=== PATIENT | female | born 1995 | race Caucasian/White ===

== ENCOUNTER 2021-12-18 17:23 | Emergency (ER) | payer SELFPAY | END 2021-12-18 19:07 | disposition home or self-care (01) | LOC: JD.ED 17:23 | DX: T16.1XXA Foreign body in right ear, initial encounter (principal); H65.01 Acute serous otitis media, right ear; Z79.899 Other long term (current) drug therapy; Z90.49 Acquired absence of other specified parts of digestive tract | CPT/HCPCS: 99282; 99283 ==

== ENCOUNTER 2022-10-12 00:30 | Emergency (ER) | payer MEDICAID ==
[2022-10-12] MEDS ORDERED: Sodium Chloride 0.9% 10 ML Syringe FLUSH PRN (00:43)
[2022-10-12 01:04] LABS: BASOPHILS ABSOLUTE AUTO 0.01 K/mm3 (0.01-0.08); BASOPHILS PERCENT AUTO 0.1 % (0.1-1.2); EOSINOPHILS ABSOLUTE AUTO 0.22 K/mm3 (0.04-0.36); HEMATOCRIT 33.5 % (34.1-44.9); HEMOGLOBIN 11.5 gm/dl (11.2-15.7); IMMATURE GRAN ABSOLUTE AUTO 0.01 K/mm3 (0.00-0.10); IMMATURE GRAN PERCENT AUTO 0.1 % (<=1.0); LYMPHOCYTES ABSOLUTE AUTO 2.42 K/mm3 (1.18-3.74); LYMPHOCYTES PERCENT AUTO 32.6 % (19.3-51.7); MEAN CORPUSCULAR HEMOGLOBIN 29.7 pg (25.6-32.2); MEAN CORPUSCULAR HGB CONC 34.3 g/dl (32.2-35.5); MEAN CORPUSCULAR VOLUME 86.6 fl (79.4-94.8); MEAN PLATELET VOLUME 10.6 fl (9.4-12.3); MONOCYTES ABSOLUTE AUTO 0.44 K/mm3 (0.24-0.36); MONOCYTES PERCENT AUTO 5.9 % (4.7-12.5); NEUTROPHILS ABSOLUTE AUTO 4.32 K/mm3 (1.56-6.13); NEUTROPHILS PERCENT AUTO 58.3 % (34.0-71.1); PLATELET COUNT,PLT 199 K/mm3 (182-369); RED BLOOD CELL COUNT 3.87 M/mm3 (3.98-5.22); WHITE BLOOD CELL COUNT,WBC 7.42 K/mm3 (3.98-10.04)
[2022-10-12 01:41] LABS: A/G RATIO 1.2 (1-2); ALANINE AMINOTRANSFERASE,ALT 23 U/L (14-59); ALBUMIN 3.9 g/dl (3.4-5.0); ALKALINE PHOSPHATASE 62 U/L (46-116); ANION GAP 11.5 (5-15); ASPARTATE AMNIOTRANSFERASE,AST 20 U/L (15-37); BILIRUBIN TOTAL 0.4 mg/dL (0.2-1.0); BLOOD UREA NITROGEN,BUN 7 mg/dL (7-18); CALCIUM 8.8 mg/dL (8.5-10.1); CARBON DIOXIDE,CO2 27 mEq/L (21-32); CHLORIDE,CL 103 mEq/L (98-107); CREATININE 0.7 mg/dL (0.55-1.02); EST CRCL DRUG DOSING (CG) 98.98 mL/min; ESTIMATED GFR 121 mL/min (>60); GLUCOSE RANDOM 90 mg/dL (70-99); MAGNESIUM 1.8 mg/dL (1.8-2.4); POTASSIUM,K 3.5 mEq/L (3.5-5.1); PROTEIN TOTAL,TP 7.3 g/dl (6.4-8.2); SODIUM,NA 138 mEq/L (136-145); TSH 3.774 uIU/mL (0.358-3.74)
[2022-10-12 01:44] LABS: TROPONIN I HIGH SENSITIVITY < 4 pg/mL (<=51)
== END 2022-10-12 02:30 | disposition home or self-care (01) ==
LOC: JD.ED 00:30
DX: R00.2 Palpitations (principal); Z88.1 Allergy status to other antibiotic agents
CPT/HCPCS: 36415; 71045; 71045-26; 80053; 83735; 84443; 84484; 85025; 85379; 93225; 93226; 99285

== ENCOUNTER 2023-07-08 17:49 | Emergency (ER) | payer MEDICAID ==
[2023-07-08 18:27] LABS: BASOPHILS PERCENT AUTO 0.3 % (0.0-1.0); EOSINOPHILS ABSOLUTE AUTO 0.3 K/mm3 (0.0-0.4); EOSINOPHILS PERCENT AUTO 2.6 % (0.0-6.0); HEMATOCRIT 33.4 % (37.0-47.0); HEMOGLOBIN 11.6 gm/dl (12.0-16.0); IMMATURE GRAN ABSOLUTE AUTO 0.04 K/mm3 (0.00-0.05); IMMATURE GRAN PERCENT AUTO 0.4 % (0.0-0.4); LYMPHOCYTES ABSOLUTE AUTO 2.2 K/mm3 (1.0-4.8); LYMPHOCYTES PERCENT AUTO 21.6 % (24.0-44.0); MEAN CORPUSCULAR HEMOGLOBIN 29.7 pg (28.0-32.0); MEAN CORPUSCULAR HGB CONC 34.7 g/dl (32.0-36.0); MEAN CORPUSCULAR VOLUME 85.6 fl (83.0-99.0); MEAN PLATELET VOLUME 9.9 fl (9.4-12.3); MONOCYTES ABSOLUTE AUTO 0.6 K/mm3 (0.0-0.8); MONOCYTES PERCENT AUTO 5.6 % (0.0-8.0); NEUTROPHILS ABSOLUTE AUTO 7.1 K/mm3 (1.8-7.7); NEUTROPHILS PERCENT AUTO 69.5 % (41.0-71.0); PLATELET COUNT,PLT 200 K/mm3 (150-400)
[2023-07-08 19:25] LABS: A/G RATIO 1.2 (1-2); ALBUMIN 3.9 g/dl (3.4-5.0); ANION GAP 13.4 (5-15); BILIRUBIN TOTAL 0.3 mg/dL (0.2-1.0); BUN/CREATININE RATIO 13.3 (14-18); CALCIUM 8.7 mg/dL (8.5-10.1); CREATININE 0.6 mg/dL (0.55-1.02); EST CRCL DRUG DOSING (CG) 114.44 mL/min; POTASSIUM,K 3.4 mEq/L (3.5-5.1); PROTEIN TOTAL,TP 7.3 g/dl (6.4-8.2)
== END 2023-07-08 20:52 | disposition home or self-care (01) ==
LOC: JD.ED 17:49
DX: O41.8X10 Other specified disorders of amniotic fluid and membranes, first trimester, not applicable or unspecified (principal); O26.851 Spotting complicating pregnancy, first trimester; Z90.49 Acquired absence of other specified parts of digestive tract; Z88.1 Allergy status to other antibiotic agents; Z3A.01 Less than 8 weeks gestation of pregnancy
CPT/HCPCS: 36415; 76817; 76817-26; 80053; 84702; 85025; 86900; 86901; 99283; 99284

== ENCOUNTER 2023-09-15 20:27 | Emergency (ER) | payer SELFPAY ==
[2023-09-15 21:13] LABS: APPEARANCE,URINE SLT CLOUDY (Clear); BILIRUBIN,URINE NEGATIVE (Negative); COLOR,URINE YELLOW (Yellow); GLUCOSE,URINE NEGATIVE (Negative); KETONES,URINE NEGATIVE (Negative); LEUKOCYTE ESTERASE,URINE TRACE (Negative); NITRITE,URINE NEGATIVE (Negative); OCCULT BLOOD,URINE NEGATIVE (Negative); PROTEIN,URINE NEGATIVE (Negative); UROBILINOGEN,URINE 0.2 (0.2-1.0)
[2023-09-15 21:29] LABS: BACTERIA,URINE MODERATE /hpf (FEW); MUCUS,URINE FEW /hpf (FEW); RBC,URINE 0-5 /hpf (0-5)
== END 2023-09-15 22:00 | disposition home or self-care (01) ==
LOC: JD.ED 20:27
DX: O26.892 Other specified pregnancy related conditions, second trimester (principal); R10.9 Unspecified abdominal pain; Z3A.16 16 weeks gestation of pregnancy; Z79.899 Other long term (current) drug therapy; Z88.1 Allergy status to other antibiotic agents
CPT/HCPCS: 81001; 81003; 87086; 99283; 99284

== ENCOUNTER 2024-02-19 17:01 | Inpatient (IN) | payer MEDICAID ==
[2024-02-19] MEDS ORDERED: Lidocaine 1% 50 ML MDV INJECT PRN (17:25)
[2024-02-19] MEDS ORDERED: Acetaminophen 325 MG Tab PO PRN ×2 (17:25→22:40)
[2024-02-19] MEDS ORDERED: Calcium Carbonate 500 MG Tab.Chew PO PRN (17:25)
[2024-02-19] MEDS ORDERED: Ondansetron 4 MG/2 ML SDV IVPUSH PRN (17:25)
[2024-02-19] MEDS ORDERED: Oxytocin/0.9 % Sodium Chloride 30 UNIT/500 ML BAG IV SCH (17:30)
[2024-02-19] MEDS: Lactated Ringers 1,000 ML IV SCH (17:49)
[2024-02-19 17:59] LABS: BASOPHILS PERCENT AUTO 0.2 % (0.0-1.0); EOSINOPHILS ABSOLUTE AUTO 0.4 K/mm3 (0.0-0.4); EOSINOPHILS PERCENT AUTO 2.1 % (0.0-6.0); HEMATOCRIT 31.1 % (37.0-47.0); HEMOGLOBIN 9.9 gm/dl (12.0-16.0); IMMATURE GRAN ABSOLUTE AUTO 0.09 K/mm3 (0.00-0.05); IMMATURE GRAN PERCENT AUTO 0.5 % (0.0-0.4); LYMPHOCYTES ABSOLUTE AUTO 1.7 K/mm3 (1.0-4.8); LYMPHOCYTES PERCENT AUTO 9.9 % (24.0-44.0); MEAN CORPUSCULAR HEMOGLOBIN 26.4 pg (28.0-32.0); MEAN CORPUSCULAR HGB CONC 31.8 g/dl (32.0-36.0); MEAN CORPUSCULAR VOLUME 82.9 fl (83.0-99.0); MEAN PLATELET VOLUME 9.7 fl (9.4-12.3); MONOCYTES ABSOLUTE AUTO 0.9 K/mm3 (0.0-0.8); MONOCYTES PERCENT AUTO 5.2 % (0.0-8.0); NEUTROPHILS ABSOLUTE AUTO 14.4 K/mm3 (1.8-7.7); NEUTROPHILS PERCENT AUTO 82.1 % (41.0-71.0); PLATELET COUNT,PLT 192 K/mm3 (150-400); RED BLOOD CELL COUNT 3.75 M/mm3 (4.10-5.30); WHITE BLOOD CELL COUNT,WBC 17.53 K/mm3 (3.9-11.3)
[2024-02-19] MEDS ORDERED: ePHEDrine 50 MG/ML SDV IVPUSH PRN (18:02)
[2024-02-19] MEDS ORDERED: diphenhydrAMINE 50 MG/ML SDV IVPUSH PRN (18:02)
[2024-02-19] MEDS: Bupivacaine/fentaNYL/NS 100 ML Bag EPIDUR PRN (18:26)
[2024-02-19] MEDS: Oxytocin/0.9 % Sodium Chloride 30 UNIT/500 ML BAG IV SCH (20:51)
[2024-02-19] MEDS: Witch Hazel Medicated Pads 40/Jar TOP PRN (23:26)
[2024-02-19] MEDS: Benzocaine/Menthol 20%-0.5% Spray 78 GM Cannister TOP PRN (23:26)
[2024-02-19] MEDS: Ibuprofen 600 MG Tab PO SCH (23:30)
[2024-02-20] MEDS: Sertraline 50 MG Tab PO SCH (08:55)
[2024-02-21] MEDS: Docusate Sodium 100 MG Cap PO PRN (08:59)
== END 2024-02-21 12:15 | disposition home or self-care (01) | DRG 807 ==
LOC: JD.OBCHECK 17:01 → JD.OB 17:04 → JD.OBCHECK 17:24 → JD.OB 17:25 → OBSVTOIN 20:51 → JD.OB 20:52
PROVIDERS: ADMIT Obstetrics & Gynecology; ATTEND Obstetrics & Gynecology
PROC: 10E0XZZ Delivery of Products of Conception, External Approach (ICD-10-PCS; principal; 2024-02-19)
PROC: 3E0R3BZ Introduction of Anesthetic Agent into Spinal Canal, Percutaneous Approach (ICD-10-PCS; 2024-02-19)
PROC: 00HU33Z Insertion of Infusion Device into Spinal Canal, Percutaneous Approach (ICD-10-PCS; 2024-02-19)
DX: O80 Encounter for full-term uncomplicated delivery (principal); Z37.0 Single live birth; Z3A.38 38 weeks gestation of pregnancy
CPT/HCPCS: 36415; 51702; 59025; 59409; 85025; 86592; 86850; 86900; 86901; A9270-GY; J3490; J7120; J7999

== ENCOUNTER 2024-03-13 18:24 | Emergency (ER) | payer MEDICAID ==
[2024-03-13] MEDS: Famotidine 20 MG/2 ML SDV IVPUSH ONE (19:55)
[2024-03-13] MEDS: Sodium Chloride 0.9% 1,000 ML IV SCH (19:55)
[2024-03-13] MEDS: Sodium Chloride 0.9% 10 ML Syringe FLUSH PRN (19:56)
[2024-03-13] MEDS: Ondansetron 4 MG/2 ML SDV IVPUSH ONE (19:56)
[2024-03-13 20:06] LABS: BASOPHILS PERCENT AUTO 0.6 % (0.0-1.0); EOSINOPHILS ABSOLUTE AUTO 0.4 K/mm3 (0.0-0.4); EOSINOPHILS PERCENT AUTO 7.4 % (0.0-6.0); HEMATOCRIT 36.1 % (37.0-47.0); HEMOGLOBIN 11.7 gm/dl (12.0-16.0); LYMPHOCYTES ABSOLUTE AUTO 2.1 K/mm3 (1.0-4.8); LYMPHOCYTES PERCENT AUTO 41.3 % (24.0-44.0); MEAN CORPUSCULAR HEMOGLOBIN 26.5 pg (28.0-32.0); MEAN CORPUSCULAR HGB CONC 32.4 g/dl (32.0-36.0); MEAN CORPUSCULAR VOLUME 81.9 fl (83.0-99.0); MEAN PLATELET VOLUME 9.8 fl (9.4-12.3); MONOCYTES ABSOLUTE AUTO 0.4 K/mm3 (0.0-0.8); MONOCYTES PERCENT AUTO 7.4 % (0.0-8.0); NEUTROPHILS ABSOLUTE AUTO 2.2 K/mm3 (1.8-7.7); NEUTROPHILS PERCENT AUTO 43.3 % (41.0-71.0); PLATELET COUNT,PLT 253 K/mm3 (150-400); RED BLOOD CELL COUNT 4.41 M/mm3 (4.10-5.30); WHITE BLOOD CELL COUNT,WBC 5.01 K/mm3 (3.9-11.3)
[2024-03-13 20:30] LABS: ALBUMIN 3.4 g/dl (3.4-5.0); ANION GAP 9.4 (5-15); BILIRUBIN TOTAL 0.2 mg/dL (0.2-1.0); BUN/CREATININE RATIO 15.7 (14-18); CALCIUM 8.5 mg/dL (8.5-10.1); CREATININE 0.7 mg/dL (0.55-1.02); EST CRCL DRUG DOSING (CG) 98.09 mL/min; POTASSIUM,K 3.4 mEq/L (3.5-5.1); PROTEIN TOTAL,TP 6.9 g/dl (6.4-8.2)
[2024-03-13] MEDS: Ketorolac 30 MG/ML SDV IVPUSH ONE (21:04)
== END 2024-03-13 21:08 | disposition home or self-care (01) ==
LOC: JD.ED 18:24
DX: R10.84 Generalized abdominal pain (principal); R10.11 Right upper quadrant pain; R19.7 Diarrhea, unspecified; Z88.1 Allergy status to other antibiotic agents
CPT/HCPCS: 36415; 80053; 85025; 96361; 96374; 96375; 99284; J1885; J2405; J3490; J7030; 99283